=== PATIENT | male | born 1960 | race Caucasian/White ===

== ENCOUNTER → 2021-11-13 09:03 | Outpatient (CLI) | payer BC, SELFPAY | PROVIDERS: PCP Family Medicine; Visit Provider Nurse Practitioner | DX: U07.1 COVID-19 (principal) | CPT/HCPCS: C9803; U0003; U0005 ==

== ENCOUNTER 2021-12-08 10:52 | Emergency (ER) | payer OTHER, SELFPAY ==
[2021-12-08 11:40] VITALS: BP 140/88; PULSE 79; RESP 20; TEMP 37.4; O2SAT 95; BMI 33.0
--- NOTE | 2021-12-08 12:11 | HMH.EDUTC ---
[facility] [place] Clinical Impression: Bronchitis Disposition: Home, Self-Care Condition on Discharge: Good Instructions: Acute Bronchitis, Cough, DI for Cough -- Adult Additional Instructions: ? Start antibiotic today. Be sure to complete entire prescription even if feeling better ? Monitor temp. Tylenol every 4 hours as needed and / or ibuprofen every 6 hours as needed ( As long as your primary care physician has told you that it ok to take both. For fever/aches/pains ER if no less than 101 despite Tylenol or Motrin ? Humidifier/vaporizer or hot steamy shower ? Inhaler every 4-6 hours as needed like we discussed. If unsure how to use it, ask pharmacist to demonstrate how. Should help open airways and improve cough, wheezing, and shortness of breath ? Mucinex for your cough Be sure to drink lots of water. . Follow up IMMEDIATELY for new or worsening of symptoms OR no noticeable improvement over the next 48-72 hours. 911 immediately for any life threatening symptoms such as chest pain or difficulty breathing Prescriptions: guaiFENesin [Mucinex 600mg tablet] 1 - 2 tab PO Q12HP PRN #20 tab PRN Reason: Congestion Transmission Status: Received by [facility] #[id number] Azithromycin [Z-David 250mg Tab] 250 mg PO DIRECTED #6 tab Transmission Status: Received by [facility] #[id number] Referrals: Milton Bee [Primary Care Provider] - As needed Time of Disposition: 12:19 Medical Decision Making - Gato Inquiry Pt receiving controlled substance: No Gato was queried for this patient: No Vital Signs: 12/08/21 11:40 12/08/21 12:26 Temperature 99.3 F 99.3 F Temperature Source Oral Pulse Rate 79 Pulse Rate [Right Brachial] 79 Respiratory Rate 20 20 Blood Pressure 140/88 Blood Pressure [Right Arm] 140/88 Blood Pressure Mean [Right Arm] 105 Blood Pressure Source [Right Arm] Automatic Cuff Blood Pressure Position [Right Arm] Sitting 02 Sat by Pulse Oximetry 95 Oxygen Delivery Method Room Air Medical Decision Narrative: patient reports that he has taken azithromycin in the past without complications or reactions [facility] [place] H[place] - General Stated complaint: chest congestion, cough Time Seen by Provider: 12/08/21 12:11 Mode of Arrival: Ambulatory Source of Information: Patient Limitations: No Limitations Description of Symptoms (Recalled from Triage Doc. by RN): PATIENT C/O CHEST CONGESTION AND PRODUCTIVE COUGH. REPORTS HE HAD COVID APPROX 4 WEEKS AGO HEENT Symptoms (Recalled from RN notes): No Resp Symptoms (Recalled from RN notes): Yes Skin Symptoms (Recalled from RN notes): No MS Symptoms (Recalled from RN notes): No Functional Status (Recalled from RN notes): WNL - History of Present Illness Provider Complaint: Patient states that he had COVID about a month ago States that he has been having some sinus drainage and cough State that at times it has been productive and worried it may be trying to turn into pneumonia - Related Data Previous Rx's Medication Instructions Recorded Azithromycin [Z-David 250mg Tab] 250 mg PO DIRECTED #6 tab 12/08/21 guaiFENesin [Mucinex 600mg tablet] 1 - 2 tab PO Q12HP PRN #20 tab 12/08/21 Allergies Allergy/AdvReac Type Severity Reaction Status Date / Time No Known Allergies Allergy Verified 12/08/21 12:05 - Worker's Comp Is this a Worker's Comp case?: No [facility] History - Hepatitis A Screen Drug use history?: No High risk sexual behaviors?: No History of sexually transmitted infection?: No Currently employed?: No Childcare worker?: No Do you have indoor plumbing?: Yes Do you have electricity?: Yes Attestation statement:: This patient has been screened for Hepatitis A risk factors. I have reviewed the patient's past medical history: Yes ROS Obtained: Yes All systems reviewed & no additional complaints, Yes Systems reviewed as appropriate & no additional complaints - Constitutional Constitutional: Reports system reviewed and no additio
[2021-12-08 12:26] VITALS: BP 140/88; PULSE 79; RESP 20; TEMP 37.4; O2SAT 95
== END 2021-12-08 12:30 | disposition home or self-care (01) ==
PROVIDERS: Emergency Provider Nurse Practitioner; PCP Internal Medicine
DX: U07.1 COVID-19 (principal); J20.9 Acute bronchitis, unspecified
CPT/HCPCS: 99202; G0463